=== PATIENT | female | born 1985 | race Caucasian/White ===

== ENCOUNTER → 2019-10-05 11:45 | Outpatient (CLI) | payer BC, SELFPAY ==
--- NOTE | ~2019-10-05 | US_ITS ---
US thyroid INDICATION: Follow-up thyroid nodules TECHNIQUE: Real-time sonographic images of the thyroid gland were obtained. COMPARISON: No prior studies for comparison. FINDINGS: The right thyroid lobe measures 4.6 x 1.4 x 1.5 cm. The left thyroid lobe measures 4.2 x 1 .1 x 1.4 cm. There are small bilateral thyroid nodules including a 3 mm hypoechoic nodule superiorly in the right lobe, 6 mm hypoechoic nodule medially in the left lobe and 3 mm hypoechoic nodule medial ly in the left lobe. The largest in the left lobe measuring 6 mm is oval, spongiform, hypoechoic, wid er than tall, smooth margin without echogenic foci, TR 2, not suspicious. IMPRESSION: 1. Bilateral thyroid nodules, largest measuring 6 mm in the left lobe, likely benign. Reviewed, dictated and finalized at location A.
== END ==
PROVIDERS: PCP Physician Assistant; Visit Provider Physician Assistant
DX: E04.2 Nontoxic multinodular goiter (principal)
CPT/HCPCS: 76536

== ENCOUNTER 2021-08-07 14:10 | Inpatient (IN) | payer OTHER, SELFPAY ==
[2021-08-07] VITALS (38 sets, daily range): BP systolic 90–138; BP diastolic 53–83; PULSE 52–139; RESP 18; TEMP 37.2; O2SAT 93–100; BMI 29.3
[2021-08-07] MEDS: LACTATED RINGERS 1,000 ML 125 ML IV CONT ×2 (14:35→14:46)
--- NOTE | 2021-08-07 14:43 | P.PNAN_ITS ---
Anes - Eval Pre Procedure Procedure: labor epidural Date/Time: 08/07/21 14:43 Preop Diagnosis: labor pain Pre Op Diagnosis: Labor Patient Data Age: 35 Gender: F Height: Weight: Last Vital Signs Pulse 67 08/07/21 14:31 BP 124/66 08/07/21 14:31 Allergies Allergy/AdvReac Type Severity Reaction Status Date / Time Penicillins Allergy Rash Verified 07/24/21 12:36 Home Medications Medication Instructions Recorded Confirmed Type ferrous sulfate 07/24/21 History prenat.vits,trista,[id number] 1 tablet PO DAILY 07/24/21 07/24/21 History Patient hx anesthesia problems: none Family hx anesthesia problems: none Results Review: All pre-operative results and documents have been reviewed as part of the pre- operative evaluation. [facility] Family History Family History Grandparent Uterine cancer Other Cervical cancer Grandparent Kidney disease Diabetes mellitus Mother Congenital heart defect Social History Social History Substance use: never Spiritual care concerns: No Exam Day of Procedure 08/07/21 14:43
[2021-08-07 14:45] LABS: Basophils Percent Auto 0.2 % (0.2-1.2); Eosinophils Percent Auto 0.2 % (0-4.4); Hematocrit 36.2 % (37.0-47.0); Hemoglobin 12.2 g/dL (12.0-15.0); Immature Granulocyte Absolute 0.08 K/mm3 (0.00-0.031); Immature Granulocyte Percent A 0.7 % (0-0.5); Lymphocytes Absolute Auto 2.39 K/mm3 (0.9-3.2); Lymphocytes Percent Auto 19.7 % (18.3-44.2); Mean Corpuscular HGB Conc 33.7 g/dl (32-36); Mean Corpuscular Hemoglobin 30.3 pg (26-34); Mean Corpuscular Volume 89.8 fl (80-100); Mean Platelet Volume 11.6 fl (7.4-10.4); Monocytes Absolute Auto 0.9 K/mm3 (0.1-0.6); Monocytes Percent Auto 7.1 % (2.6-8.5); Neutrophils Absolute Auto 8.8 K/mm3 (1.3-6.7); Neutrophils Percent Auto 72.1 % (45.5-73.1); Platelet Count Result 208 k/mm3 (150-375); Red Blood Count 4.03 M/mm3 (4.2-5.4); Red Cell Distribution Width 13.9 % (11.5-14.5); White Blood Count 12.2 K/mm3 (4.5-10.0)
--- NOTE | 2021-08-07 14:52 | LDADM ---
This patient, Sandy Escobar, was admitted to Labor/Delivery/Recovery 108 on 08/07/21 at 14:10. Plans for labor, pain management and were discussed with patient. Patient/family oriented to hospital policies and general routines including ID bracelet, bed and alarms, visiting hours, pain management, procedures, bathroom and other care routines, personal items, smoking policy, room service/diet and guest tray routines, security routines, and visiting hours. Patient/Family are encouraged to report perceived risks to care and to ask questions if they do not understand what they are told or what they should do. See OBIX for further documentation.
--- NOTE | 2021-08-07 16:19 | P.PCNOB_ITS ---
OB - Delivery Note Procedure Delivery date: 08/07/21 Procedure: The patient is a 35-year-old now who presented to labor and delivery on 08/07/2021 at 39 weeks 4 days gestation in labor. Patient reported an increase in frequency and intensity of contractions at approximately noon today. At 1:30 p.m., patient reported noticing leakage of fluid. Upon arrival to labor and delivery, patient was noted be 4-5 cm dilated and grossly ruptured with meconium-stained amniotic fluid. Patient was uncomfortable and requested an epidural for pain management which was placed without difficulty. Patient continued to make progressive cervical change on her own. She was noted to be fully dilated at 4:00 p.m. Patient was prepped and draped for delivery. Straight catheterization was performed with return of 200 cc of clear urine. At 4:07 p.m., patient delivered head atraumatically without difficulty in LALO presentation. Occiput restituted to maternal left side. With subsequent push, the 's neck, shoulders, and rest of body delivered easily without difficulty. Infant was crying spontaneously. Nose and mouth were suctioned with bulb suction. was placed on maternal abdomen where care was assumed by awaiting nursing staff. Delayed cord clamping was performed for approximately 60 seconds. The cord was clamped and cut. A segment of cord was collected for cord gases. Cord blood was collected. The placenta was delivered spontaneously and intact. Uterine fundus was noted to be firm to massage. On inspection, no lacerations were noted. Estimated blood loss for entire delivery was 150 cc. The infant was a live-born female , Apgars 8 and 9, weighing 7 lb 4 oz. Both mother and baby doing well at end of delivery. Delivery monitor: External FHT and External Uterine Route of delivery: Laceration Description: None Specimen: Yes (cord blood and cord gases) Quantitative Blood Loss (ml): 150 Anesthesia type: Epidural Disposition: Floor Complications: No immediate complications [place] Baby Date of : 08/07/21 Time of : 16:07 Weeks of gestation at delivery: 39 (39.4) gender: Female Weight (pounds): 7 Weight (ounces): 4 presentation: vertex position: Left Occiput Anterior Placenta delivery description: Spontaneous Cord Vessel Description: 3 Vessels and Delayed Cord Clamping score one minute: 8 score five minutes: 9 AMG Delivery Billing Delivery Delivery: Delivery Charge
--- NOTE | 2021-08-07 16:19 | PM.IMHP ---
H&P: HPI History of Present Illness Date/Time: 08/07/21 16:19 Chief Complaint: Contractions Leakage of fluid Narrative: The patient is a 35yo LMP 11/03/20 currently 39w4d gestation with GABRIELA 08/10/21 who presented to L&D with complaints of contractions and leakage of fluid. Patient is dated by LMP c/w US on 01/23/21 at 11w gestation. Patient reported worsening of contractions at approximately noon today. She then reported leakage of fluid at approximately 1:30 p.m. Contractions remained consistent afterwards and were occurring approximately every 5 mins. Upon arrival to L&D, patient was 4-5 cm dilated and grossly ruptured with meconium stained amniotic fluid. Decision was made to admit patient in active labor. Review of Systems Review of Systems: All systems reviewed & are unremarkable except as noted in HPI and below Constitutional: Constitutional: Reports as per HPI and Reports no additional constitutional complaints Eyes: Eyes: Reports as per HPI and Reports no additional eye complaints ENT: Reports system reviewed and no additional complaints, except as documented and Reports as per HPI Cardiovascular: Cardiovascular: Reports as per HPI and Reports no additional cardiovascular complaints Gastrointestinal: Gastrointestinal: Reports as per HPI and Reports no additional gastrointestinal complaints Genitourinary: Genitourinary: Reports no additional female genitourinary complaints and Reports as per HPI Integumentary/Breasts: Skin/Breast: Reports system reviewed and no additional complaints, except as docu and Reports as per HPI Neurologic: Reports system reviewed and no additional complaints, except as documented and Reports as per HPI Endocrine: Endocrine: Reports no additional endocrine complaints and Reports as per HPI Hematologic/Lymphatic: Hematologic/Lymphatic: Reports no additional hematologic/lymphatic complaints and Reports as per HPI Allergic/Immunologic: Allergic/Immunologic: Reports no additional allergic/immunologic complaints and Reports as per HPI [facility] Family History Family History Grandparent Uterine cancer Other Cervical cancer Grandparent Kidney disease Diabetes mellitus Mother Congenital heart defect Social History Social History Smoking status: Never smoker Substance use: never Spiritual care concerns: No Meds Home Medications and Allergies Home Medications Medication Instructions Recorded Confirmed Type ferrous sulfate 150 mg PO DAILY 07/24/21 08/07/21 History prenat.vits,trista,[id number]-[id number]-twurm 1 tablet PO DAILY 07/24/21 08/07/21 History Allergies Allergy/AdvReac Type Severity Reaction Status Date / Time Penicillins Allergy Rash Verified 07/24/21 12:36 Vital Signs Vital Signs - 24 hr 08/07/21 14:31 08/07/21 14:47 08/07/21 15:01 Pulse Rate 67 73 73 Blood Pressure 124/66 121/60 125/75 Pulse Oximetry Oxygen Delivery 08/07/21 15:13 08/07/21 15:16 08/07/21 15:18 Pulse Rate 80 Blood Pressure 131/83 Pulse Oximetry 94 100 Oxygen Delivery 08/07/21 15:23 08/07/21 15:26 08/07/21 15:28 Pulse Rate 78 77 75 Blood Pressure 138/74 135/59 L 122/63 Pulse Oximetry 100 100 100 Oxygen Delivery 08/07/21 15:31 08/07/21 15:33 08/07/21 15:36 Pulse Rate 74 78 76 Blood Pressure 127/67 119/65 119/63 Pulse Oximetry 100 Oxygen Delivery 08/07/21 15:38 08/07/21 15:41 08/07/21 15:43 Pulse Rate 77 74 74 Blood Pressure 121/60 123/68 113/69 Pulse Oximetry 100 100 Oxygen Delivery 08/07/21 15:46 08/07/21 15:48 08/07/21 15:51 Pulse Rate 72 72 72 Blood Pressure 124/64 118/62 118/61 Pulse Oximetry 100 Oxygen Delivery 08/07/21 15:53 08/07/21 15:56 08/07/21 15:57 Pulse Rate 71 71 Blood Pressure 116/64 124/68 Pulse Oximetry 100 100 Oxygen Delivery 08/07/21 15:58 08/07/21 16:02 08/07/21 16:07 Pulse Rate
[2021-08-07] MEDS: OXYTOCIN 30 UNITS/NS 500 ML 30 UNITS/500 ML BAG 125 UNITS IV CONT (16:46)
[2021-08-08] MEDS: IBUPROFEN 600 MG TABLET PO ×2 (03:47→13:14)
[2021-08-08 04:23] VITALS: BP 116/74; PULSE 62; RESP 18; TEMP 36.8; O2SAT 99
[2021-08-08 04:36] LABS: Hematocrit 32.8 % (37.0-47.0); Hemoglobin 10.9 g/dL (12.0-15.0)
[2021-08-08 08:00] VITALS: BP 108/68; PULSE 78; RESP 18; TEMP 36.7; O2SAT 100
[2021-08-08] MEDS: ACETAMINOPHEN 325 MG TABLET 650 MG PO ×2 (08:26→16:33)
[2021-08-08] MEDS: MULTIVIT/MIN/PREN/FOL AC/IRON TABLET 1 TAB PO (08:27)
[2021-08-08] MEDS: LANOLIN (LANSINOH) 7.5 GM CREAM 1 APPLIC TOPICAL (08:28)
[2021-08-08] MEDS: DOCUSATE SODIUM 100 MG CAPSULE PO ×2 (08:28→16:34)
[2021-08-08 08:38] LABS: Rapid Plasma Reagin Non-Reactive (NonReactive)
--- NOTE | 2021-08-08 09:26 | PC.NURSE ---
0900 - Introductions were made and Mother verbalizes she is able to independently latch with appropriate positioning/alignment. She denies any nipple discomfort and is responsively . is currently meeting outcomes for weight, output, jaundice and feeding frequencies of 8-12 times in 24 hours. Mother declines any additional assistance/education at this time but will call for a latch assessment at the next feeding. Mother is encouraged to call for assistance if her doesn?t latch or there is discomfort with latching. Mother voiced understanding of information shared and mom and baby guide reviewed for additional resource information . Reported to the primary RN.
--- NOTE | 2021-08-08 10:29 | P.PNOB_ITS ---
OB - PN: Subj Subjective Date/time seen: 08/08/21 10:29 Patient doing well this morning. Denies significant abdominal pain. Minimal lochia. Ambulating without difficulty. Voiding well. OB - PN: Obj Data Labs CBC & Chem 7: 08/08/21 03:43 Labs: Laboratory Results - last 24 hr 08/07/21 08/07/21 08/07/21 14:40 14:40 14:40 WBC 12.2 H RBC 4.03 L Hgb 12.2 Hct 36.2 L MCV 89.8 MCH 30.3 MCHC 33.7 RDW 13.9 Plt Count 208 MPV 11.6 H Immature Gran % (Auto) 0.7 H Neut % (Auto) 72.1 Lymph % (Auto) 19.7 [place] % (Auto) 7.1 Eos % (Auto) 0.2 Baso % (Auto) 0.2 Lymph # (Auto) 2.39 [place] # (Auto) 0.9 H Eos # (Auto) 0.0 Baso # (Auto) 0.0 Abs Immat Gran (auto) 0.08 H Absolute Neuts (auto) 8.8 H Absolute Nucleated RBC 0.0 Nucleated RBC % 0.0 RPR Non-reactive Blood Type O Positive Antibody Screen Negative 08/08/21 03:43 WBC RBC Hgb 10.9 L Hct 32.8 L MCV MCH MCHC RDW Plt Count MPV Immature Gran % (Auto) Neut % (Auto) Lymph % (Auto) [place] % (Auto) Eos % (Auto) Baso % (Auto) Lymph # (Auto) [place] # (Auto) Eos # (Auto) Baso # (Auto) Abs Immat Gran (auto) Absolute Neuts (auto) Absolute Nucleated RBC Nucleated RBC % RPR Blood Type Antibody Screen OB - PN A/P Assessment and Plan (1) Normal spontaneous vaginal delivery: Code(s): O80 - Encounter for full-term uncomplicated delivery Status: Acute Assessment and Plan: PPD#1 doing well continue routine care pt requesting dc home today emergency precautions reviewed f/u in office in 4-6 weeks Time Spent With Patient Time: Total time spent is greater than 50% in coordination of care (as documented) at patient's floor/unit and/or counseling patient: Exam Const: General: cooperative, healthy appearing, comfortable and no acute distress GI: Inspection: non-distended GI Palp: Yes Soft to palpation and No Tenderness to palpation present (GI) Other: fundus firm below umbilicus Extrem: Right lower extremity: no edema Left lower extremity: no edema Other: no calf tenderness
--- NOTE | 2021-08-08 10:29 | WPDANLDPN2 ---
Anes-Prog Note L&D Date/Time: 08/08/21 10:29 Comfortable throughout: labor and delivery Neuraxial method: epidural Epidural/Spinal procedure site: clean & non-tender Neuro status: Neuro function grossly intact. Cardiovascular status: normal Respiratory status: normal Airway patency: baseline Mental status: baseline Post-Op hydration status: normal Vital Signs: Last Vital Signs Temp 36.7 C 08/08/21 08:00 Pulse 78 08/08/21 08:00 Resp 18 08/08/21 08:00 BP 108/68 08/08/21 08:00 Pulse Ox 100 08/08/21 08:00 O2 Del Method Room Air 08/08/21 08:00 Pain score (VAS): 03/20 I/O: Intake & Output 08/07/21 08/08/21 08/08/21 23:59 07:59 15:59 Intake Total 1000 300 Output Total 272 Balance 728 300 Post-procedural complaints: none Patient feedback: Patient satisfied with anesthetic care.
--- NOTE | 2021-08-08 10:31 | P.DS_ITS ---
DS: Admitting Diagnosis Discharge Date 08/08/21 Admitting Diagnosis Active labor at term OB - DS: Summary OB Procedures : None OB Procedures Intrapartum: Spontaneous Vag Delivery OB Procedures: : None Time Spent with Patient Time attestation: Total time spent providing and/or coordinating discharge services: DS: Data Data Completed and Pending Labs on day of discharge: Labs from last 24 hours 08/08/21 08/07/21 08/07/21 03:43 14:40 14:40 WBC RBC Hgb 10.9 L Hct 32.8 L MCV MCH MCHC RDW Plt Count MPV Immature Gran % (Auto) Neut % (Auto) Lymph % (Auto) [place] % (Auto) Eos % (Auto) Baso % (Auto) Lymph # (Auto) [place] # (Auto) Eos # (Auto) Baso # (Auto) Abs Immat Gran (auto) Absolute Neuts (auto) Absolute Nucleated RBC Nucleated RBC % RPR Non-reactive Blood Type O Positive Antibody Screen Negative 08/07/21 14:40 WBC 12.2 H RBC 4.03 L Hgb 12.2 Hct 36.2 L MCV 89.8 MCH 30.3 MCHC 33.7 RDW 13.9 Plt Count 208 MPV 11.6 H Immature Gran % (Auto) 0.7 H Neut % (Auto) 72.1 Lymph % (Auto) 19.7 [place] % (Auto) 7.1 Eos % (Auto) 0.2 Baso % (Auto) 0.2 Lymph # (Auto) 2.39 [place] # (Auto) 0.9 H Eos # (Auto) 0.0 Baso # (Auto) 0.0 Abs Immat Gran (auto) 0.08 H Absolute Neuts (auto) 8.8 H Absolute Nucleated RBC 0.0 Nucleated RBC % 0.0 RPR Blood Type Antibody Screen Discharge Plan Discharge Attending physician on discharge: Tri Rosen Discharging Clinician: Tri Rosen Anticipated Discharge Date/Time: 08/08/21 16:00 Patient Disposition: Home, Self-Care Activity: as tolerated Diet: regular Discharge Instructions: Call office ([phone]) to schedule a visit in 4-6 weeks. You may take Ibuprofen 600mg every 6 hours as needed for pain. Pain medication may make you constipated. It may be helpful to take an otsn-mki-cqqovko stool softener, such as Colace and/or Senokot, along with the pain medication to help lessen constipation. Call office or go to ED for pain not controlled with medication, headache, chest pain, shortness of breath, fever, chills, persistent nausea or vomiting, severe abdominal pain, heavy vaginal bleeding >2 pads/hour, foul vaginal discharge or odor, or problems with your breasts. Patient Instructions: Antibiotic Form Stand Alone Forms: General Discharge Information Follow-up/Referrals: Tri Rosen MD [Physician] - Discharge Medications: Continued #2 Tablet 1 tablet PO DAILY Discontinued ferrous sulfate 150 mg PO DAILY Date of admission: 08/07/21 14:10 Primary Care Provider: ЕленаSalima Admitting Provider: Tri Rosen Attending physician on admission: Tri Rosen Condition: Stable
[2021-08-08 12:08] VITALS: BP 101/59; PULSE 71; RESP 18; TEMP 36.9; O2SAT 99
[2021-08-08 13:49] VITALS: BP 101/59; PULSE 71; RESP 18; TEMP 36.9; O2SAT 99
--- NOTE | 2021-08-08 13:57 | PC.NURSE ---
[id number] Introductions were made, then consulted with patient to assess needs related to . Mother led the conversation with her experience feeding her so far and has latched to the right breast. On closer assessment the latch is visualized as less then 90 degrees. Mother states was on, then fell asleep. Nipple is misshaped. Mother works well with her infant with encouragement and education. Encouraged understanding of the benefits of skin to skin (unwrapping infant and placing vertically on her chest), responsive feeding and how to watch for early feeding signs, frequency of feeding on demand about every 8-12 times in 24 hours (every 2-3 hours), milk production, duration of feeding, signs of adequate intake/output and how to record on the feeding sheet. Reviewed positioning and ear, shoulder, hip alignment, supporting the breast, asymmetrical latch (off-center), and leading with the chin with a big open side gape. latched optimally to the left breast in football position. Education given to mother of how to visualize suck/swallow ratios and drinking at the breast. Infant was able to maintain latch without discomfort to mother. Nipple care reviewed with optimal latch and good positioning. Resources used to facilitate learning were used with the visual handouts/mom and baby guide. Mother voiced understanding of responsive feedings, stimulating with skin to skin, hand expressed colostrum, touch, talking to to encourage if it has been 2 -3 hours since the start of the last , to call if does not latch or there is discomfort with . Reported to the primary RN.
--- NOTE | 2021-08-08 15:00 | PC.NURSE ---
Patient was given the opportunity to view the discharge video Mother & Baby Care, The First Two Weeks and to ask questions. Patient declined viewing the video and has been given the mother/baby guide for home reference.
--- NOTE | 2021-08-08 17:02 | PC.NURSE ---
Self care and infant care discharge instructions given including follow up visit date and time. Pt. verbalized understanding. No questions or concerns voiced. Very pleasant and cooperative. FOB at side.
[2021-08-09 12:57] VITALS: BP 111/65; PULSE 91; RESP 20; TEMP 36.8; O2SAT 100
== END 2021-08-08 18:12 | disposition home or self-care (01) | DRG 807 ==
LOC: ANHLDR 14:31 → ANHOB2 19:30
PROVIDERS: Admitting Provider Student in an Organized Health Care Education/Training Program; PCP Physician Assistant; Visit Provider Student in an Organized Health Care Education/Training Program
DX: O77.0 Labor and delivery complicated by meconium in amniotic fluid (principal); Z37.0 Single live birth; Z3A.39 39 weeks gestation of pregnancy
CPT/HCPCS: 36415; 84112; 85014; 85018; 85025; 86592; 86850; 86900; 86901; A9270; J2590; J2795; J7120

== ENCOUNTER → 2021-11-01 10:57 | Outpatient (CLI) | payer OTHER, SELFPAY ==
--- NOTE | ~2021-11-01 | US_ITS ---
EXAMINATION: US thyroid DATE: 11/01/2021 11:14 INDICATION: Nontoxic multinodular goiter. TECHNIQUE: Multiple ultrasound images of the thyroid were obtained. COMPARISON: Thyroid ultrasound 10/05/2019, 10/13/2018 FINDINGS: The right thyroid lobe measures 5.0 x 1.4 x 1.4 cm. The left thyroid lobe measures 4.5 x 1.3 x 1.4 c m. In the left thyroid lobe, there is a 7 mm solid, hypoechoic, wider than tall nodule with smooth m argin without echogenic foci (TI-RADS TR4). In the left thyroid lobe, there is a 4 mm nodule. In the right thyroid lobe, there is a 5 mm solid, isoechoic, wider than tall nodule with smooth margin witho ut echogenic foci (TR3). IMPRESSION: 1. Small thyroid nodules, likely not clinically significant. No follow-up is needed. Reviewed, dictated and finalized at location A. IMPRESSION: 1. Small thyroid nodules, likely not clinically significant. No follow-up is ne eded.
== END ==
PROVIDERS: PCP Physician Assistant; Visit Provider Physician Assistant
DX: E04.2 Nontoxic multinodular goiter (principal)
CPT/HCPCS: 76536

== ENCOUNTER → 2021-12-08 07:58 | Outpatient (CLI) | payer OTHER, SELFPAY ==
--- NOTE | ~2021-12-08 | US_ITS ---
EXAMINATION: US right upper quadrant DATE: 12/08/2021 08:23 INDICATION: Abnormal liver enzymes TECHNIQUE: Multiple grayscale and Doppler ultrasound images of the abdomen were obtained. COMPARISON: None available FINDINGS: The head, body, and tail of the pancreas are normal. The liver is normal with normal echoge nicity and echotexture. No surface nodularity. Normal hepatopetal flow in the main portal vein. The g allbladder is normal with no abnormal wall thickening, pericholecystic fluid or stones. The normal co mmon bile duct measures 4 mm. There was no sonographic Baum sign. IMPRESSION: 1. No sonographic correlate for the patient's symptoms. Reviewed, dictated and finalized at location A.
== END ==
PROVIDERS: PCP Physician Assistant; Visit Provider Physician Assistant
DX: R74.01 Elevation of levels of liver transaminase levels (principal)
CPT/HCPCS: 76705

== ENCOUNTER → 2022-01-15 11:24 | Outpatient (CLI) | payer OTHER, SELFPAY ==
--- NOTE | ~2022-01-15 | US_ITS ---
EXAMINATION: US pelvic complete w TV DATE: 01/15/2022 11:59 INDICATION: T83.32XA - Displacement of intrauterine contraceptive dev... Pelvic pain after IUD place ment. TECHNIQUE: Multiple transabdominal and endovaginal sonographic images of the pelvis were obtained. COMPARISON: None. FINDINGS: Uterus: 8.2 x 3.5 x 5.2 cm. IUD, in good position. Endometrial complex measures 6 mm. Right Ovary: Not visualized. Left Ovary: 2.5 x 1.3 x 3.1 cm. Vascular flow is present. Dominant follicle versus subcentimeter simp le cyst. There is no free fluid in the pelvis. IMPRESSION: IUD, in good position. Right ovary not visualized. Otherwise normal pelvic ultrasound findings. Reviewed, dictated and finalized at location K. WORKER IMPRESSION: IUD, in good position. Right ovary not visualized. Otherwise normal pelvic ultr asound findings.
== END ==
PROVIDERS: PCP Physician Assistant; Visit Provider Student in an Organized Health Care Education/Training Program
DX: Z30.431 Encounter for routine checking of intrauterine contraceptive device (principal)
CPT/HCPCS: 76830; 76856

== ENCOUNTER 2022-08-24 11:35 | Outpatient (CLI) | payer OTHER, SELFPAY ==
--- NOTE | ~2022-08-24 | CT_ITS ---
EXAMINATION: CT abdomen pelvis w con DATE: 08/24/2022 12:25 INDICATION: Right lower quadrant abdominal pain. TECHNIQUE: Computed tomography (CT) of the abdomen and pelvis was performed with 100 mL Omnipaque 350 intravenous contrast. Automated exposure control and iterative reconstruction technique were employe d. The dose-length product was 328.57 mGy-cm. COMPARISON: None. FINDINGS: The visualized portions of the lung bases are clear without pneumonia or pleural effusion. The heart size is normal. No pericardial effusion. The liver, gallbladder, spleen, pancreas, adrenal glands, and kidneys are normal. There are no dilated loops of bowel. The appendix is normal. There is an intrauterine device in expected position. The ovaries are unremarkable. There is an umbilical her gloria containing fat. There are no pathologically enlarged lymph nodes. There is no free intraperitonea l fluid. There is mild lumbar spondylosis. IMPRESSION: 1. Umbilical hernia containing fat. Reviewed, dictated and finalized at location A.
== END 2022-08-24 11:36 | disposition home or self-care (01) ==
PROVIDERS: PCP Physician Assistant; Visit Provider Physician Assistant
DX: K42.9 Umbilical hernia without obstruction or gangrene (principal)
CPT/HCPCS: 74177; Q9967

== ENCOUNTER → 2022-10-17 09:45 | Outpatient (CLI) | payer OTHER, SELFPAY ==
--- NOTE | ~2022-10-17 | US_ITS ---
Limited Abdominal Sonogram: Real-time sonographic imaging of the right upper quadrant was performed. Clinical History: Right upper quadrant pain Findings: The liver appears normal with no evidence of mass lesion or bile duct dilatation. Main por gris vein demonstrates normal direction of flow. The gallbladder is well distended, and appears normal with no evidence of gallstone or wall thickening. The common bile duct measures 4 mm. The visualize d pancreas, aorta, and IVC are unremarkable. Impression: No significant abnormality seen. Reviewed, dictated and finalized at location M. Impression: No significant abnormality seen.
== END ==
PROVIDERS: PCP Physician Assistant; Visit Provider Surgery
DX: R10.11 Right upper quadrant pain (principal)
CPT/HCPCS: 76705

== ENCOUNTER → 2023-03-27 08:55 | Outpatient (CLI) | payer OTHER, SELFPAY ==
--- NOTE | ~2023-03-27 | US_ITS ---
US soft tissue head and neck DATE: 03/27/2023 09:20 INDICATION: Cervical lymphadenopathy for 3 months TECHNIQUE: Real-time and color flow imaging targeted area of clinical complaint at right neck COMPARISON: None FINDINGS: 3 lymph nodes are identified in the submandibular area, measuring 1.0 x 0.5 x 1.0 cm, 0.4 x 0.3 x 0.5 cm and 1.0 x 0.8 x 0.7 cm, each with vascular flow. There is relatively uniform thickness and hypoechogenicity of the cortex of each of the nodes. IMPRESSION: 3 nonspecific 1 cm or smaller right submandibular lymph nodes Reviewed, dictated and finalized at Location A. Reviewed, dictated and finalized at location B. WORKER
== END ==
PROVIDERS: PCP Physician Assistant; Visit Provider Physician Assistant
DX: R59.0 Localized enlarged lymph nodes (principal)
CPT/HCPCS: 76536

== ENCOUNTER 2023-05-27 15:43 | Outpatient (CLI) | payer OTHER, SELFPAY ==
--- NOTE | 2023-05-27 15:46 | ECG_ITS ---
Measurements Intervals [place] Rate: 81 P: 70 IN: 144 QRS: 79 QRSD: 94 T: 39 QT: 362 QTc: 422 Interpretive Statements SINUS RHYTHM DELAYED PRECORDIAL R/S TRANSITION BASELINE ARTIFACT- I, II, III, AVR, AVL, AVF, V1, V3 BORDERLINE ECG NO PREVIOUS ECG AVAILABLE FOR COMPARISON Electronically Signed On 05-27-2023 17:29:05 CDT by Robert Claros D.O.
== END 2023-05-27 15:44 | disposition home or self-care (01) ==
LOC: ANHSURGERY 15:46
PROVIDERS: PCP Physician Assistant; Visit Provider Surgery Plastic and Reconstructive Surgery
DX: Z41.1 Encounter for cosmetic surgery (principal)
CPT/HCPCS: 93005

== ENCOUNTER 2023-05-31 00:22 | Day surgery (SDC) | payer OTHER, SELFPAY ==
[2023-05-24 15:00] VITALS: BMI 23.6
--- NOTE | 2023-05-24 15:05 | PC.NURSE ---
Report to the Outpatient Waiting Room, entrance under the green pavilion located off [facility], at time 6:00 on date 05/31/23. Planned Procedure Time: 7:30. Time changes happen often and if your time is changed the preop area will call you the afternoon before. - You and your visitor will be asked to self-screen and do not enter if you have any COVID symptoms. - A mask is optional within the hospital at this time. Patients may have clear liquids (water, carbonated beverages, clear teas, apple juice) until 3 hours prior to surgery (4:30) with a maximum of 20 ounces. - No food from midnight until time of surgery Take the following medications with a SIP of water the morning of surgery: NONE DO NOT STOP ANY OF YOUR OTHER PRESCRIPTION MEDICATIONS PRIOR TO SURGERY ?EXCEPT THE FOLLOWING Medications to discontinue per physician: VITAMINS/SUPPLEMENTS Date to take last dose: 05/27/23 Please no make-up, nail [place] islander, hairspray, perfume, deodorant, or body powder the day of surgery. No jewelry (including any body piercings) or valuables the day of surgery, leave them at home. Please take a shower or bath the night before, or the morning of, surgery with an antibacterial soap. Wear comfortable, loose fitting clothing. - Jewelry must be removed prior to entering the operating room. Rings and piercings that are not removed may be cut off. - The hospital will not accept responsibility for valuables. - Please leave all valuables, including medications, at home the day of surgery. If you are going home after surgery, a licensed ups driver must drive you home. - NO public transportation without another adult if you receive anesthesia. - We recommend that an adult stay with you for 24 hours following discharge. - We also recommend that you do not drive, make important decision, drink alcoholic beverages, or take any drugs that were not prescribed by your health care provider for at least 24 hours after your discharge time. Follow any additional instructions given to you from your surgeon. If you or anyone in your household have experienced Covid symptoms in the past week, please notify your surgeon or the nurse liaison at the phone number below for possible testing. Telephone instructions given to PT Ronna CARBAJAL and asked if any additional questions and then verbalized understanding. Patient advised to call surgeon office or pre surgery nurse liaison [phone] if any additional questions.
[2023-05-31] VITALS (9 sets, daily range): BP systolic 114–129; BP diastolic 67–80; PULSE 84–106; RESP 12–16; TEMP 36.6–37.6; O2SAT 95–100
[2023-05-31] MEDS: ACETAMINOPHEN 500 MG TABLET 1000 MG PO (06:35)
[2023-05-31] MEDS: LACTATED RINGERS 1,000 ML 30 ML IV CONT ×2 (06:47→11:50)
--- NOTE | 2023-05-31 07:19 | WPDHPUPDATE1 ---
History and Physical Update Update Date/Time: 05/31/23 07:19 History and Physical has been reviewed, including an updated exam of the patient. There are NO changes in the patient's condition. Risks, benefits, and alternatives have been discussed and questions answered. Patient agrees to proceed with procedure.
--- NOTE | 2023-05-31 07:19 | W.PM.PROC2 ---
Procedure Note - Detailed Date of Procedure 05/31/23 Pre-op Diagnosis skin laxity, umbilical hernia Post-op Diagnosis Same Procedure Performed Progressive tension abdominoplasty with suction lipectomy Surgeon Sulaiman Maddox MD Anesthesia General Findings Tissue removed: 699 grams Lipoaspirate: 2,400 Description of Procedure They are here today for the above procedures. Previously and again today the risks, benefits, alternatives were discussed in extensive detail. I wanted them to be very realistic about the risks involved as well as expectations. We discussed aftercare and what to monitor for. I was very upfront about the risks of wound breakdown leading to loss of skin, open wounds, and need for additional procedures with permanent abdominal deformity. We discussed DVT/PE risks and management. Made sure answered all of their questions to their satisfaction today and consent was obtained. They were marked in the preoperative holding area with their verification. The patient was taken to the operating room. Anesthesia was provided by anesthesiology. A Gimenez catheter was started. Placed prone on the operating room table with care taken to protect from injury. Prepped and draped in a standard sterile fashion. A surgical time-out was taken. Stab incisions were made and tumescent solution was infiltrated. Once adequate time was allowed for hemostasis a 5mm basket and 3mm multi hole cannula were utilized to complete suction lipectomy based on S.A.F.E. technique in multiple planes and passes. Suction lipectomy continued to result based on pre-operative planning, intra-operative observation, and rolling pinch test which were in full agreement. Patient was then placed supine with care taken to protect from injury. I placed the patient in a flexed position to verify the upper and lower markings would reach. I then placed supine. A thorough abdominal examination was completed. Stab incisions were made and tumescent solution infiltrated. Stab incisions were made and tumescent solution was infiltrated. Once adequate time was allowed for hemostasis a 5mm basket and 3mm multi hole cannula were utilized to complete suction lipectomy based on S.A.F.E. technique in multiple planes and passes. Suction lipectomy continued to result based on pre-operative planning, intra-operative observation, and rolling pinch test which were in full agreement. A 10 blade was used to make the upper incision. I continued dissection down to the level of fascia. Elevated just what was necessary for repair of the diastasis. I then again flexed the bed to verify the upper skin flap would reach the lower markings without tension. Once verified I placed her supine once again and a 10 blade used to make the lower incision. I elevated up to level the umbilicus and left the umbilicus intact on a well-vascularized stalk. The intervening tissue was removed. A 2 mm blunt cannula with 0.5% bupivacaine was injected deep to the fascia bilaterally. I plicated the diastasis recti using 0 PDO Stratafix barbed suture. This was in 2 separate layers using 2 separate sutures as well. After the patient was flexed (below) plicated the fascia with 0 PDO Stratafix in two separate layers. The patient was flexed and starting from superior to inferior began plication using 2-0 Vicryl to obliterate all space in a standard progressive tension fashion. At the umbilicus I marked out the location of the skin and inset this with 3-0 Monocryl and 4-0 Vicryl. I continued the remainder of the plication using 2-0 Vicryl until I reached my lower planned scar line. I trimmed any excess skin of the upper flap making sure this was a tension-free closure. 15 Jose Francisco drain was placed. I then approximated using a 3 point suture with 2-0 Vicryl followed by 2-0 PDO Stratafix, 3-0 Stratafix ,running subcuticular 4-0 Monocryl, and tissue glue. Fluffs and an abdominal binder were placed. The pa
[2023-05-31] MEDS: KETOROLAC 15 MG/ML VIAL (*BKC) IV PUSH (07:20)
--- NOTE | 2023-05-31 07:24 | WPDHPUPDATE1 ---
History and Physical Update Update Date/Time: 05/31/23 07:24 History and Physical has been reviewed, including an updated exam of the patient. There are NO changes in the patient's condition. Risks, benefits, and alternatives have been discussed and questions answered. Patient agrees to proceed with procedure.
--- NOTE | 2023-05-31 07:25 | WPDANESEPPF ---
Anes - Initial Pre Proc Eval Procedure: Operation Date: 05/31/23 07:30 Proposed Procedures p Abdominoplasty with Liposuction, - Sulaiman Maddox MD s Open Umbilical Hernia Repair - Storm Malin DO Date/Time: 05/31/23 07:25 Surgeon: Sulaiman Maddox MD Pre Op Diagnosis: skin laxity, umbilical hernia Patient Data Age: 37 Gender: F Height: 1.65 m Weight: 65.8 kg Last Vital Signs Temp 99.7 F H 05/31/23 06:50 Pulse 84 05/31/23 06:50 Resp 16 05/31/23 06:50 BP 114/76 05/31/23 06:50 Pulse Ox 100 05/31/23 06:50 O2 Del Method Room Air 05/31/23 06:50 Allergies Allergy/AdvReac Type Severity Reaction Status Date / Time Penicillins Allergy Mild Rash Verified 05/31/23 06:24 Home Medications Medication Instructions Recorded Confirmed Type calcium carbonate 334 mg-magnesium 1 tablet PO DAILY 01/02/22 05/31/23 History oxide 134 mg-zinc sulf 5 mg tablet levonorgestrel 21 mcg/24 hours (8 1 device intrauterine ONCE 05/02/22 05/31/23 History yrs) 52 mg intrauterine device (Mirena) multivitamin (Daily Multi-Vitamin 1 tablet PO DAILY 05/02/22 05/31/23 History tablet) dextroamphetamine-amphetamine 10 10 mg PO DAILY 05/24/23 05/31/23 History mg tablet lisdexamfetamine 40 mg capsule 40 mg PO DAILY 05/24/23 05/31/23 History (Vyvanse) sertraline 50 mg tablet 75 mg PO HS 05/24/23 05/31/23 History Laboratory Tests 05/31/23 06:13 Cotinine Pending Patient hx anesthesia problems: none Family hx anesthesia problems: none Results Review: All pre-operative results and documents have been reviewed as part of the pre-operative evaluation. FOR[facility]LY [facility] Past Medical History Medical History Anxiety Vaginal delivery x 3 Surgical History Surgical History [place] teeth removed Family History Family History Sibling Asthma Grandparent Family history of malignant neoplasm of uterus Diabetes mellitus Hypertension Heart disease Mother Hypertension Heart disease Grandparent Uterine cancer Other Cervical cancer Grandparent Kidney disease Diabetes mellitus Mother Congenital heart defect Social History Social History Smoking status: Never smoker Second hand tobacco smoke exposure: No Alcohol intake: current Drinks per week: 4 Substance use: never Substance use type: does not use Lack of Transportation: No Lack of Food: Never True Current Housing: I Have Housing Concerned About Future Housing: No Difficulty Paying Gas/Electric Bills: No Difficulty Paying for Meds: No Currently Unemployed: No Education: Master's Degree or Higher Living arrangements: with family Occupation/Education: occupation Gender identity (if verbalized by the patient): Female Sexual Orientation (if Verbalized by the Patient): Straight or Heterosexual Spiritual care concerns: No Agree to blood products: Yes Anes - Eval Final PreProcedure Day of Procedure 05/31/23 07:25 Patient weight: normal Heart: regular rate and rhythm Lungs: clear to auscultation Airway: Mallampati scale class II Neurological: alert and oriented Last oral intake: >/= 8 hours ASA classification: II Emergent: no Anesthetic plan: proceed Anesthesia type and monitoring: general ETT and standard monitoring Results Review: All pre-operative results and documents have been reviewed as part of the pre-operative evaluation. Informed Consent: The patient's anesthetic plan and its attendant risks and benefits were discussed with the patient/family/POA. Questions were solicited and answers provided to the satisfaction of the patient/family/POA.
--- NOTE | 2023-05-31 07:26 | PM.IMHP ---
H&P: HPI History of Present Illness Date/Time: 05/31/23 07:26 Chief Complaint: umbilical hernia Narrative: 37 yo woman presents for umbilical hernia repair at time of abdominoplasty. She reports no changes since last seen in office. Review of Systems Review of Systems: All systems reviewed & are unremarkable except as noted in HPI and below Constitutional: Constitutional: Denies chills, Denies fever(s), Denies headache(s) and Denies weight loss Eyes: Eyes: Denies change in vision ENT: Denies dizziness, Denies headache(s), Denies neck mass and Denies throat swelling Cardiovascular: Cardiovascular: Denies chest pain, Denies lightheadedness and Denies dyspnea Respiratory: Respiratory: Denies cough, Denies dyspnea and Denies wheezing Gastrointestinal: Gastrointestinal: Denies abdominal pain, Denies change in bowel habits, Denies nausea and Denies vomiting Genitourinary: Genitourinary: Denies hematuria and Denies dysuria Musculoskeletal: Musculoskeletal: Reports as per HPI Integumentary/Breasts: Skin/Breast: Reports as per HPI Neurologic: Denies dizziness and Denies headache(s) Allergic/Immunologic: Allergic/Immunologic: Denies throat swelling and Denies wheezing PMFSH Past Medical History Medical History Anxiety Vaginal delivery x 3 Surgical History Surgical History [place] teeth removed Family History Family History Sibling Asthma Grandparent Family history of malignant neoplasm of uterus Diabetes mellitus Hypertension Heart disease Mother Hypertension Heart disease Grandparent Uterine cancer Other Cervical cancer Grandparent Kidney disease Diabetes mellitus Mother Congenital heart defect Social History Social History Smoking status: Never smoker Second hand tobacco smoke exposure: No Alcohol intake: current Drinks per week: 4 Substance use: never Substance use type: does not use Lack of Transportation: No Lack of Food: Never True Current Housing: I Have Housing Concerned About Future Housing: No Difficulty Paying Gas/Electric Bills: No Difficulty Paying for Meds: No Currently Unemployed: No Education: Master's Degree or Higher Living arrangements: with family Occupation/Education: occupation Gender identity (if verbalized by the patient): Female Sexual Orientation (if Verbalized by the Patient): Straight or Heterosexual Spiritual care concerns: No Agree to blood products: Yes Meds Home Medications and Allergies Home Medications Medication Instructions Recorded Confirmed Type calcium carbonate 334 mg-magnesium 1 tablet PO DAILY 01/02/22 05/31/23 History oxide 134 mg-zinc sulf 5 mg tablet levonorgestrel 21 mcg/24 hours (8 1 device intrauterine ONCE 05/02/22 05/31/23 History yrs) 52 mg intrauterine device (Mirena) multivitamin (Daily Multi-Vitamin 1 tablet PO DAILY 05/02/22 05/31/23 History tablet) dextroamphetamine-amphetamine 10 10 mg PO DAILY 05/24/23 05/31/23 History mg tablet lisdexamfetamine 40 mg capsule 40 mg PO DAILY 05/24/23 05/31/23 History (Vyvanse) sertraline 50 mg tablet 75 mg PO HS 05/24/23 05/31/23 History Allergies Allergy/AdvReac Type Severity Reaction Status Date / Time Penicillins Allergy Mild Rash Verified 05/31/23 06:24 Vital Signs Vital Signs - 24 hr 05/31/23 06:50 Temperature 37.6 C H Pulse Rate 84 Respiratory Rate 16 Blood Pressure 114/76 Pulse Oximetry 100 Oxygen Delivery Room Air Exam Const: General: no acute distress and alert Orientation/consciousness: patient oriented x3 HENMT: Head: normocephalic and atraumatic Ears: hearing grossly normal bilaterally Face/Nose/Sinus: Normal nares present Mouth: Yes Normal oral and palatal
[2023-05-31] MEDS: ceFAZolin 2 GM/D5W 50 ML 2 GM/50 ML BAG IVPB (07:35)
[2023-05-31 07:42] LABS: Urine Cotinine NEGATIVE
--- NOTE | 2023-05-31 10:09 | W.PM.PROC2 ---
Procedure Note - Detailed Date of Procedure 05/31/23 Pre-op Diagnosis skin laxity, umbilical hernia Post-op Diagnosis Same Procedure Performed Open 0.5 cm umbilical hernia repair. Surgeon Storm Malin, DO Anesthesia General Indications This is a 37-year-old woman who presented with a small umbilical hernia that was noted on exam. She has had occasional tenderness at the umbilicus for the past year. She was evaluated for abdominal plasty by Dr. Maddox and then she was referred for surgical evaluation for the hernia. Discussions were made with the patient about treatment options and decision was made to proceed with open umbilical hernia repair at the time of abdominal plasty. Findings The patient was found to have a 0.5 cm hernia after the abdominal wall was exposed for abdominoplasty, I was called in to repair the hernia. A small hernia defect was noted just deep to the umbilical stalk. This was reapproximated using 0 Ethibond simple interrupted sutures. Please refer to Dr. Maddox's operative report for details of his procedure. Description of Procedure Procedure as well as risks, benefits, and alternatives were discussed with the patient. Written consent was obtained and placed in chart prior to procedure. Patient was brought back to surgical suite. She was placed supine on operating table. Time-out was done to confirm patient and procedure. She was then intubated by the anesthesia department. Her abdomen was prepped and draped in sterile fashion. I was called in once the skin incisions had already been made and the abdominal wall was exposed. The umbilical stalk was isolated with a small remnant of umbilical skin. A small vertical midline incision was made just inferior to the umbilical stalk using electrocautery. This allowed me to identify the hernia defect from the underside and inspect for any other abnormalities. The hernia defect only measured 0.5 cm. The fascial edges were reapproximated using 0 Ethibond simple interrupted sutures from the underside. I then closed the fascial incision inferior to the umbilicus using 0 Ethibond simple interrupted sutures as well. The repair was inspected and appeared secure. At the conclusion of Dr. Maddox's procedure, the patient was awakened from anesthesia, extubated, and transferred to recovery. Estimated Blood Loss 0 Complications No immediate complications Condition Stable Disposition Observation [facility] Billing Surgery - Charge Forward: Surgery Billing
[2023-05-31] MEDS: LACTATED RINGERS IRRIG 1,000 ML, LIDOCAINE HCL 1% LOCAL INJ 50 ML, EPINEPHrine HCL INJ ... INFILTRATE (11:55)
[2023-05-31] MEDS: oxyCODONE HCL (*CRX) 5 MG TAB IR PO (13:19)
== END 2023-05-31 14:14 | disposition home or self-care (01) ==
PROVIDERS: Surgery; PCP Physician Assistant; Visit Provider Surgery Plastic and Reconstructive Surgery
PROC: (CPT 15830; principal; 2023-05-31 07:30)
PROC: (CPT 49591; 2023-05-31 07:30)
DX: K42.9 Umbilical hernia without obstruction or gangrene (principal); Z41.1 Encounter for cosmetic surgery; L57.4 Cutis laxa senilis; F41.9 Anxiety disorder, unspecified; Z79.899 Other long term (current) drug therapy
CPT/HCPCS: 49591; 15830; 15847; 15877; 80307; A9270; J0171; J0690; J1100; J1170; J1885; J2250; J2405; J2704; J3010; J7120

== ENCOUNTER 2023-09-06 10:12 | Outpatient (CLI) | payer OTHER, SELFPAY ==
--- NOTE | ~2023-09-06 | US_ITS ---
Abdominal Sonogram: Real-time sonographic imaging of the abdomen was performed. Clinical History: Abdominal pain Findings: The liver appears normal with no evidence of mass lesion or bile duct dilatation. Main por gris vein demonstrates normal direction of flow. The spleen is normal in size without evidence of foca l lesion. The gallbladder is well distended, and appears normal with no evidence of gallstone or wal l thickening. The common bile duct measures 4 mm. The visualized pancreas, aorta, and IVC are unrema rkable. The right kidney measures 11.4 cm in length and the left kidney measures 11.6 cm. There is no hydronephrosis or renal calculus. Impression: Unremarkable abdominal ultrasound. Reviewed, dictated and finalized at location . Impression: Unremarkable abdominal ultrasound.
== END 2023-09-06 10:13 ==
LOC: MICIMG 10:14
PROVIDERS: PCP Physician Assistant; Visit Provider Physician Assistant
DX: R10.10 Upper abdominal pain, unspecified (principal)
CPT/HCPCS: 76700

== ENCOUNTER 2024-05-19 08:07 | Outpatient (CLI) | payer OTHER, SELFPAY ==
--- NOTE | ~2024-05-19 | MMUS_ITS ---
EXAMINATION: MM diagnostic rishi LT w katherine, US breast LT limited HISTORY: Follow-up left breast mass TECHNIQUE: 3-D tomosynthesis images of the left breast were performed and synthetic 2-D images were g enerated. CAD analysis was submitted and interpreted. High resolution limited left breast ultrasound was performed. COMPARISON: 02/21/2024 BREAST PARENCHYMAL COMPOSITION:Dense: The breasts are heterogeneously dense, which may obscure small masses. FINDINGS: MAMMOGRAPHIC FINDINGS: Stable circumscribed oval mass at the upper, outer left breast posteriorly, most compatible with kathy gn lymph node. No other mass lesion or distortion seen in the left breast. No suspicious microcalcifi cations. ULTRASOUND: At the 2:00 position left breast, 12 cm from the nipple, there is a 7 x 6 x 7 mm reniform lymph node with fatty hilum. Appearance is stable from prior exam. IMPRESSION: Intramammary lymph node left breast, as above. This has a benign appearance. If clinically desired, c onsider additional 6 month follow-up ultrasound to ensure continued stability. BI-RADS Category 2: Benign finding(s). Reviewed, dictated and finalized at location M. IMPRESSION: Intramammary lymph node left breast, as above. This has a benign appearance. If clinically desired, consider additional 6 month follow-up ultrasound to ensure continued stability. BI-RADS Category 2: Benign finding(s).
== END 2024-05-19 08:08 | disposition home or self-care (01) ==
LOC: MICIMG 08:08
PROVIDERS: PCP Physician Assistant; Visit Provider Physician Assistant
DX: R59.0 Localized enlarged lymph nodes (principal); N63.20 Unspecified lump in the left breast, unspecified quadrant
CPT/HCPCS: 76642; 77061; 77065; G0279

== ENCOUNTER 2025-03-08 08:28 | Outpatient (CLI) | payer OTHER, SELFPAY ==
--- NOTE | ~2025-03-08 | MMUS_ITS ---
EXAMINATION: US breast LT limited, MM diagnostic rishi BI w katherine HISTORY: Follow-up. TECHNIQUE: Craniocaudal and mediolateral oblique 3-D tomosynthesis images were obtained and synthetic 2-D images were generated. CAD analysis was submitted and interpreted. Grayscale sonography over the area(s) of interest with color Doppler if there is a finding. COMPARISON: May,. Outside images from 2023. BREAST PARENCHYMAL COMPOSITION: Dense: The breasts are heterogeneously dense, which may obscure small masses. MAMMOGRAM FINDINGS: An intramammary lymph node is seen in the upper outer quadrant. No suspicious masses are seen. There are no suspicious calcifications. No unexplained architectural distortion is seen. There are no skin or nipple abnormalities identified. There is no adenopathy seen on the images submitted. ULTRASOUND FINDINGS: Again seen is a presumed lymph node with a maximum dimension of 7 mm, unchanged. It is noted that this structure originally measured 10 mm in February,. IMPRESSION: No mammographic or sonographic evidence to suggest malignancy is seen. The patient may return to screening mammography as per ACR guidelines. BI-RADS 2 - Benign. Reviewed, dictated and finalized at location A. STRAL SURVEYOR IMPRESSION: No mammographic or sonographic evidence to suggest malignancy is seen. The nando ent may return to screening mammography as per ACR guidelines. BI-RADS 2 - Benign.
== END 2025-03-08 08:29 | disposition home or self-care (01) ==
PROVIDERS: PCP Physician Assistant; Visit Provider Physician Assistant
DX: N63.20 Unspecified lump in the left breast, unspecified quadrant (principal)
CPT/HCPCS: 76642; 77062; 77066; G0279